=== PATIENT | male | born 1960 | race Caucasian/White ===

== ENCOUNTER 2016-04-13 15:30 | Inpatient (IN) | payer OTHER ==
[~2016-04-13] VITALS: Ht 157.5 cm; Wt 90.9 kg
[2016-04-13 17:26] VITALS: BP 126/75; Ht 157.5 cm; Wt 90.9 kg
[2016-04-13] MEDS ORDERED: ASPIRIN325 MG PO (17:38)
[2016-04-13] MEDS ORDERED: PEPCID20 MG PO (17:39)
[2016-04-13] MEDS ORDERED: LIPITOR80 MG PO (17:40)
[2016-04-13] MEDS ORDERED: ACETAMINOPHEN325 MG PO (17:40)
[2016-04-13] MEDS ORDERED: ZESTRIL40 MG PO (17:42)
--- NOTE | 2016-04-13 17:58 | NUR ---
PT. ARRIVED TO UNIT VIA WHEELCHAIR AND FRIEND PRESENT. PT. DOES NOT SPEAK MARTINIQUAIS VERY MUCH. HE IS ALERT AND ORIENTED X 3. VITAL SIGNS; TEMP. 98.9, PULSE 91, RESP. 16, B/P 126/75, 02SAT. 98%. A CORPORATE DIRECTOR PHONE IS SET UP AT THE NURSES STATION.
[2016-04-13 19:25] VITALS: BP 140/77
--- NOTE | 2016-04-13 19:45 | NUR ---
PT IS RESTING IN BED WITH EYES OPEN. HE IS ALERT TO SURROUNDINGS. PT SPEAKS VERY LITTLE EAST TIM[place], SO IT IS DIFFICULT TO DETERMINE CORRECT ORIENTATION. VSS. MIKE SUCTION SET UP FOR PT. PT REPORTED TO HAVE LEFT SIDE WEAKNESS. DIFFICULT TO DETERMINE THIS WITH PT IN BED. SR'S ARE UP X2 IN BED. CALL LIGHT AND BEDSIDE TABLE ARE WITHIN EASY REACH.
--- NOTE | 2016-04-13 21:52 | NUR ---
PT IS RESTING QUIETLY IN BED WITH EYES CLOSED. NO DISTRESS NOTED.
--- NOTE | 2016-04-13 21:58 | NUR ---
PT. IN BED LYING ON HIS RIGHT SIDE WITH HOB SLIGHTLY ELEVATED. FEMALE VISITOR SITTING ON THE SIDE OF THE BED. FEMALE SAYS SHE SPEAKS THE MOST TURKISH, BUT NOT MUCH. ASKED IF PT. WAS HAVING ANY PAIN AND PT. TOLD HER NO. CALL LIGHT WITHIN REACH.
--- NOTE | 2016-04-14 01:44 | NUR ---
PT NOTED SITTING ON THE SIDE OF HIS BED. HE STATED: "THIS BED NO GOOD FOR SLEEP. I WANT WHITE BED OR I GO HOME NOW." I INFORMED HIM THAT THE FRAMES WERE DIFFERENT, BUT THE MATTRESSES ARE THE SAME. HE ARGUED FOR 5 MINUTES. BEDS CHANGED, AND PT HAPPY NOW. PTS M[place]GRIN WAS GOOD DURING THIS ENCOUNTER, BUT HE COULD NOT SPEAK [place] WHEN TALKING TO HIM AT THE BEGINNING OF THE SHIFT.
--- NOTE | 2016-04-14 04:32 | NUR ---
RESTING IN BED WITH EYES CLOSED.
[2016-04-14 05:58] LABS: BASOPHILS 0.1 % (0.0-2.0); EOSINOPHILS 2.4 % (0-7); HEMATOCRIT 46.1 % (42.0-54.0); HEMOGLOBIN 14.8 g/dL (13.5-17.5); IMMATURE GRANULOCYTES 0.5 % (0-5); MCH 27.2 pg (26.0-34.0); MCHC 32.1 g/dL (31.0-37.0); MCV 84.6 fL (80.0-100.0); MEAN PLATELET VOLUME 11.2 fL (7.4-10.4); MONOCYTES 11.1 % (2-11); NEUTROPHILS 68.9 % (40-80); PLATELET COUNT 215 10x3/uL (130-400); RBC 5.45 10x6/uL (4.20-6.10); RDW 13.3 % (11.5-14.5); WBC 9.7 10x3/uL (4.8-10.8)
[2016-04-14 06:15] LABS: ANION GAP 11.7 mmol/L (8-16); CALCIUM 9.2 mg/dL (8.5-10.1); CARBON DIOXIDE 27.8 mmol/L (21.0-32.0); CREATININE - SERUM 1.1 mg/dL (0.6-1.3); POTASSIUM - SERUM 4.5 mmol/L (3.5-5.1)
--- NOTE | 2016-04-14 07:34 | NUR ---
RESTING QUIETLY IN BED. CALL LIGHT IN REACH
[2016-04-14 11:58] VITALS: BP 140/75
--- NOTE | 2016-04-14 12:01 | NUR ---
SITTING IN BED IN ROOM DENIES NEEDS OR C/O. CALL LIGHT IN REACH. PT HAS BROKEN SERBIAN BUT IT IS GOOD ENOUGH TO EASILY COMMUNICATE WITH STAFF
--- NOTE | 2016-04-14 16:11 | NUR ---
RESTING QUIETLY IN BED. USED [address] PHONE WITH TYPESETTING MACHINE OPERATOR/TENDER TO MAKE SURE PT UNDERSTANDS HIS LENGTH OF STAY WILL END ON 04/16/16. HIS LEFT SIDE IS WEAK
--- NOTE | 2016-04-14 16:55 | NUR ---
CARE TEAM MEETING: PATIENT PROGRESSING VERY WELL IN THERAPY. HE WISHES TO GO HOME 04/16/16. WILL CONTNIUE TO FOLLOW WITH PATIENT UNTIL DISCHARGED
--- NOTE | 2016-04-14 18:36 | NUR ---
DENIES NEEDS OR C/O.
--- NOTE | 2016-04-14 19:30 | NUR ---
PT IS RESTING IN A CHAIR IN HIS ROOM WATCHING TV. ALERT AND ORIENTED X 3. SPEAKS BROKEN [place]AMBI[place], BUT WELL ENOUGH TO BE CLEARLY UNDERSTOOD. LEFT SIDE WEAKNESS NOTED, BUT IT IS SIGNIFICANTLY BETTER THAN HE PROJECTED YESTERDAY. PT DENIES PAIN OR DISCOMFORT. SR'S ARE UP X 2 IN BED. CALL LIGHT AND BEDSIDE TABLE ARE WITHIN EASY REACH.
--- NOTE | 2016-04-14 21:29 | NUR ---
PT IS RESTING IN BED WATCHING TV. NO NEEDS VOICED.
[2016-04-14 21:40] VITALS: BP 131/76
--- NOTE | 2016-04-15 00:01 | NUR ---
RESTING QUIETLY IN BED WITH EYES CLOSED. RESPS ARE EVEN AND UNLABORED. NO ACUTE DISTRESS NOTED.
--- NOTE | 2016-04-15 02:17 | NUR ---
PT RESTING ,EYES CLOSED. BED LOW. CL IN REACH.
--- NOTE | 2016-04-15 05:04 | NUR ---
RESTING IN BED WITH EYES CLOSED. NO DISTRESS NOTED.
--- NOTE | 2016-04-15 06:00 | NUR ---
PT RESTING IN BED WITH EYES CLOSED.
[2016-04-15 08:02] VITALS: BP 149/82
--- NOTE | 2016-04-15 10:52 | NUR ---
PATIENT DISCHARGING HOME 04/16/16. NO DME OR HOME HEALTH NEEDED AT THIS TIME. DR. NATHALY BOLTON OFFICE WILL CALL PATIENT WITH AN APPOINTMENT.PATIENT EDUCATION BOOKLET GIVEN TO PATIENT ON STROKE . WILL CONT IUE TO FOLLOW WITH PATIENT UNTIL DISCHARGED .
--- NOTE | 2016-04-15 11:10 | NUR ---
CLINICALS FAXED TO [facility] AT [facility] REGARDING AUTH# [id number]. NOTIFING OF DISCHARGE HOME ON THE 04/16/16. CONFORMATION RECIEVED. FAXED TO , PHONE [phone]
--- NOTE | 2016-04-15 13:41 | NUR ---
WALKING IN HALLS
--- NOTE | 2016-04-15 17:49 | NUR ---
ATE SUPPER AND NOW WALKING AROUND
--- NOTE | 2016-04-15 19:30 | NUR ---
PT IN CHAIR AT BEDSIDE. COMPLAINS OF HEADACHE AND REQUEST PRN WITH SCHEDULED MEDS. NO OTHER NEEDS MADE KNOWN. WATER AND CALL LIGHT IN REACH.
[2016-04-15 20:45] VITALS: BP 152/64
--- NOTE | 2016-04-15 21:20 | NUR ---
PT IN BED WITH EYES OPEN. NO SIGN/SYMPTOMS OF DISTRESS NOTED. NO NEEDS MADE KNOWN. WATER AND CALL LIGHT IN REACH.
--- NOTE | 2016-04-15 23:48 | NUR ---
PT IN CHAIR AT BEDSIDE. COUGHING NOTED WITH PRN COUGH MEDICATION GIVEN PER APR. NO OTHER CONCERNS MADE KNOWN. WATER AND CALL LIGHT IN REACH.
--- NOTE | 2016-04-16 04:07 | NUR ---
PT IN BED WITH EYES CLOSED. COUGHING NOTED. NO NEEDS MADE KNOWN. CALL LIGHT IN REACH.
[2016-04-16 05:54] LABS: BASOPHILS 0.1 % (0.0-2.0); EOSINOPHILS 3.9 % (0-7); HEMATOCRIT 44.2 % (42.0-54.0); HEMOGLOBIN 14.6 g/dL (13.5-17.5); IMMATURE GRANULOCYTES 0.1 % (0-5); LYMPHOCYTES 13.2 % (15-50); MCH 27.7 pg (26.0-34.0); MCV 83.9 fL (80.0-100.0); MEAN PLATELET VOLUME 10.8 fL (7.4-10.4); MONOCYTES 12.8 % (2-11); NEUTROPHILS 69.9 % (40-80); PLATELET COUNT 230 10x3/uL (130-400); RBC 5.27 10x6/uL (4.20-6.10); RDW 13.3 % (11.5-14.5)
[2016-04-16 06:03] LABS: ANION GAP 11.6 mmol/L (8-16); CALCIUM 8.8 mg/dL (8.5-10.1); CARBON DIOXIDE 27.6 mmol/L (21.0-32.0); CREATININE - SERUM 1.2 mg/dL (0.6-1.3); POTASSIUM - SERUM 4.2 mmol/L (3.5-5.1)
--- NOTE | 2016-04-16 07:37 | NUR ---
PT RESTING IN BED WITH EYES OPEN CALL LIGHT IN REACH WILL MONITER
[2016-04-16 07:55] VITALS: BP 163/91
--- NOTE | 2016-04-16 08:00 | NUR ---
SITTING UP IN BED EATING BREAKFAST.
[2016-04-16] MEDS ORDERED: ZITHROMAX250 MG PO (08:28)
--- NOTE | 2016-04-16 10:44 | RHP ---
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 HISTORY OF PRESENT ILLNESS: The patient is a 55-year-old male, who was admitted with acute infarction to the right thalamus. He reports he was in normal state of health, working and walking when he had an acute onset of weakness in his left lower extremity. He was unable to bear weight or ambulate due to weakness. He had facial droop, loss of speech, swallowing difficulty and visual difficulty. He was found to be hypertensive with blood pressure 165/102. MRI showed an acute infarct in the right thalamus. Prior to admit, he was independent with ADLs and mobility without aid. Currently, he is moderate to max assist for ADLs and mobility for short distances. He lives alone and is his caregiver. He was discharged from [facility] on Tuesday; however, feels he is at risk secondary to being alone, ataxic, and having stairs lead into his home. He speaks predominantly Frisian, but he is able to communicate minimally with Luxembourgish. He definitely needs inpatient rehabilitation if he is to get back to his prior level of functioning and be able to return home on his own. COMORBIDITIES: Include uncontrolled hypertension, left-sided numbness, grade I diastolic dysfunction, obstructive sleep apnea, hyperlipidemia, respiratory distress, cardiac arrhythmia, seizure disorder in the past, aspiration, changing cognition, anemia, malnutrition, dehydration, and weight loss. PAST MEDICAL HISTORY: Significant for hyperlipidemia, sleep apnea, hypertension and CVA. PAST SURGICAL HISTORY: None. ALLERGIES: No known drug allergies. CURRENT MEDICATIONS: Include lisinopril 40 mg daily, Lipitor 80 mg daily, aspirin 325 mg daily, acetaminophen 650 q.4 hours p.r.n. and Pepcid 20 mg b.i.d. HABITS: No current alcohol or tobacco use. FAMILY HISTORY: Noncontributory. SOCIAL HISTORY: The patient hopes to return back home and get back to his prior level of functioning. REVIEW OF SYSTEMS: GENERAL: Does complain of weakness and especially one sided. HEENT: Denies cold, cough, or congestion. CARDIOVASCULAR: Denies any chest pain. HISTORY AND PHYSICAL [id number] LYUDMILA DEGROOT PHYSICAL EXAMINATION: VITAL SIGNS: Stable, afebrile. GENERAL: A somewhat obese gentleman, in no acute distress, alert upon exam. HEENT: Normocephalic and atraumatic. Mucosa moist. NECK: Supple. No lymphadenopathy. LUNGS: Clear at this time. HEART: Regular rate and rhythm. ABDOMEN: Benign. EXTREMITIES: No clubbing, cyanosis or edema. NEUROLOGIC: He does have noted left-sided weakness and also a little difficulty with speech. LABORATORY DATA: Admit labs show a white count of 9.7, H&H of 14 and 46 and platelet count was noted to be 215. Sodium is 139, potassium 4.5, BUN and creatinine of 18 and 1.1 and blood sugar was noted to be 100. ASSESSMENT: This 55-year-old gentleman admitted to the rehab with a working diagnosis of acute infarct of his right thalamus affecting his left side. The patient has potential to make improvement. We instituted the following multidisciplinary therapies including to, but not limited to physical, occupational, respiratory, speech, nutritional services, prosthetics and orthotics. Given his complex condition and risk for more complications, rehabilitation services cannot be provided at a low level of care such as a senior care facility. PLAN: 1. Admit to [facility] rehab for intensive inpatient therapy to include the following disciplines: A. Physical therapy to improve gait, all transfer skills and bed mobility to a modified independent level. B. Occupational therapy to improve activities of daily living to a modified independent level. C. Case management to assist with discharge planning and placement options. D. Nutrition to assist with nutritional needs. E. Rehabilitation nursing to assist in monitoring the patient's final conditions and to assist with any type of bowel or bladder management. 2. The patient's current medications and medical care will be continued. 3. We will follow his blood pressures closely. 4. We will go ahead and work with physical therapy on getting his ataxia and gait back to a normal level. 5. When the patient is stable on his feet, and able to get around and perform ADLs, I will get him back home. 6. We would discuss this patient during care team staff meeting this week. TRANSINT:[id number] Voice Confirmation ID: [id number] DOCUMENT ID: [id number] HISTORY AND PHYSICAL [id number] LYUDMILA DEGROOT SCOTT MD at 1044 CC: [id number] DICTATION DATE: 04/14/1633 DRAPERY EXAMINER: 04/14/16 1119 ADM IN [address] [place] [id number] [place] [address]
--- NOTE | 2016-04-16 11:30 | NUR ---
PT DISCHARGED TO HOME VIA WHEELCHAIR PT DISCHARGE SUMMARY AND MEDS REVIEWED WITH PT MEDS CALLED IN TO BETTYE GLYNN PT DISCHARGED WITH FAMILY NO QUESTIONS AND NO PROBLEMS
== END 2016-04-16 13:18 | disposition home or self-care (01) | DRG 57 ==
LOC: D.REHAB 15:30
PROVIDERS: ADMIT Emergency Medicine
DX: I69.354 Hemiplegia and hemiparesis following cerebral infarction affecting left non-dominant side (principal); I50.30 Unspecified diastolic (congestive) heart failure; E46 Unspecified protein-calorie malnutrition; G47.33 Obstructive sleep apnea (adult) (pediatric); E78.5 Hyperlipidemia, unspecified; D64.9 Anemia, unspecified; R20.0 Anesthesia of skin; I11.0 Hypertensive heart disease with heart failure; I49.9 Cardiac arrhythmia, unspecified; E86.0 Dehydration; I69.393 Ataxia following cerebral infarction; I69.392 Facial weakness following cerebral infarction; I69.391 Dysphagia following cerebral infarction; R13.10 Dysphagia, unspecified